=== PATIENT | male | born 1980 | race Caucasian/White ===

== ENCOUNTER 2017-03-25 14:27 | Emergency (ER) | payer SELFPAY ==
[2017-03-25 15:08] VITALS: BP 119/80
--- NOTE | 2017-03-25 15:18 | EDM.PDOC ---
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 States that he was using a skill saw and accidentally slipped across the wording into his palmar aspect of his left fingertips. There are deep lacerations to the volar aspect questionable whether or not there could be bony involvement. The lacerations are all above the flexor tendon insertion sites. He believes his tetanus toxoid is up-to-date about 6 years ago. Injury occurred about 45 minutes before coming to the ED. He is right-hand dominant. 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 (see below) Left Hand Pain Score (Numeric/FACES): 8 - Related Data Allergies Allergy/AdvReac Type Severity Reaction Status Date / Time No Known Allergies Allergy Verified 11/03/14 16:21 Home Meds: Home Meds Minocycline HCl 100 mg PO BID #20 capsule 03/25/17 [Rx] oxyCODONE HCl/Acetaminophen [Percocet 5-325 mg Tablet] 1 - 2 each PO Q4H PRN # 10 tablet 03/25/17 [Rx] Past Medical History - Past Health History Medical/Surgical History: Denies Medical/Surgical History - Past Surgical History GI Surgical History: Reports: Appendectomy Social & Family History - Tobacco Use Smoking Status *Q: Current Every Day Smoker Years of Tobacco use: 10 Packs/Tins Daily: 0.5 Used Tobacco, but Quit: No Second Hand Smoke Exposure: No - Caffeine Use Caffeine Use: Reports: Coffee, Soda - Alcohol Use Days Per Week of Alcohol Use: 0 - Recreational Drug Use Recreational Drug Use: No - Living Situation & Occupation Living situation: Reports: with Significant Other Occupation: Employed Review of Systems - Review of Systems Review Of Systems: See Below Constitutional: Reports: No Symptoms Eyes: Reports: No Symptoms Ears: Reports: No Symptoms Nose: Reports: No Symptoms Mouth/Throat: Reports: No Symptoms Respiratory: Reports: No Symptoms Cardiovascular: Reports: No Symptoms GI/Abdominal: Reports: No Symptoms Genitourinary: Reports: No Symptoms Musculoskeletal: Reports: No Symptoms Skin: Reports: No Symptoms Neurological: Reports: No Symptoms Psychiatric: Reports: No Symptoms ED EXAM, GENERAL - Physical Exam Exam: See Below Exam Limited By: No Limitations General Appearance: Alert, WD/WN, Mild Distress Extremities: Other (Patient has deep lacerations across the mid distal phalanx ease of the second third and fourth fingers of his left hand. There particular a deep on the second and fourth digits. Lacerations again are above the flexor tendon insertion sites. Question whether may be bony involvement.) Neurological: Alert ( X-rays will be done.), Oriented, CN II-XII Intact, Normal Cognition, Normal Gait Psychiatric: Normal Affect, Normal Mood Skin Exam: Warm, Dry, Intact, Normal Color, No Rash ED TRAUMA EXTREMITY PROCEDURES - Laceration/Wound Repair Left Finger Lac/Wound Length In cm: 4.5 (Lacerations to the volar surfaces of the second third and fourth fingers total length was 4.5 cm) Appearance: Subcutaneous, Clean Distal NVT: Neuro & Vascular Intact Anesthetic Type: Local Local Anesthesia - Lidocaine (Xylocaine): 1% Plain Local Anesthetic Volume: Other (8 mL in total.) Exploration/Debridement/Repair: Wound Explored Closed With: Sutures Suture Size: other (Utilized a combination of 3040 and 5-0 Ethilon sutures to bring the wounds together.) # of Sutures: 13 (Mils start second finger took seven 3-0 sutures and the fourth finger took four 4-0 sutures) Suture Type: Nylon, Interrupted, Simple Course - Vital Signs Last Recorded V/S: Last Vital Signs Temp 36.6 C 03/25/17 15:06 Pulse 74 03/25/17 15:06 Resp 20 03/25/17 15:06 BP 119/80 03/25/17 15:06 Pulse Ox 100 03/25/17 15:06 - Orders/Labs/Meds Meds: Medications Discontinued Medications Generic Name Dose Route Start Last Admin Trade Name Freq PRN Reason Stop Dose Admin Lidocaine HCl 10 ml 03/25/17 15:29 03/25/17 16:13 Xylocaine 1% INJECT 03/25/17 15:30 10 ml ONETIME ONE Administration - Radiology Interpretation Free Text/Narrative:: 36-year-old male seen through the ED with a work-related injury. Patient suffered deep lacerations to the volar aspects of his left second third and fourth fingertips. This happened when still sought crossed across the fingers. Has deep lacerations that will require laceration repair. Longest in length is about 1.5 cm. X-ray of the hand to be done to rule out bony injury. Tetanus toxoid is felt to be up-to-date at this time. - Re-Assessments/Exams Free Text/Narrative Re-Assessment/Exam: 03/25/17 15:32 x-rays of the fingers of the left hand do not reveal any bony involvement from Skil saw injuries. Therefore injuries are all soft tissue and will require laceration repair. He will require repair to the second third and fourth volar distal phalanx phalanges. 03/25/17 16:15: Lacerations to the distal volar aspects of the left second third and fourth fingers were sutured under local anesthetic. Total length of lacerations was 4.5 cm. Suit 13 sutures were used in total. Sutures should be removed in 10-12 days time. Departure - Departure Time of Disposition: 16:08 Disposition: Home, Self-Care 01 Condition: Fair Clinical Impression: Laceration of fingers without complication Qualifiers: Encounter type: initial encounter Qualified Code(s): S61.219A - Laceration without foreign body of unspecified finger without damage to nail, initial encounter - Discharge Information Prescriptions: Minocycline HCl 100 mg PO BID #20 capsule oxyCODONE HCl/Acetaminophen [Percocet 5-325 mg Tablet] 1 - 2 each PO Q4H PRN # 10 tablet PRN Reason: pain relief. Instructions: Laceration Care, Adult Referrals: PCP,None [Primary Care Provider] - Forms: ED Department Discharge Additional Instructions: Evaluation in the emergency room today in regards to work related injury. Fingertips of the left second third and fourth fingers came in contact with skill saw blade with resultant deep lacerations to the surfaces. X-ray of the hand does not reveal any bony injuries or hand lacerations above tendon insertion sites. Us toxoid is felt to be up-to-date. Treatment was therefore wound cleansed and then anesthetized with 1% lidocaine and suture repair. Treatment at home is to daily cleanse the wounds with soap and water. Showering is okay. Then apply topical anabolic such as bacitracin or Polysporin to the wounds once daily and cover with bandages to keep clean. Sutures will need to be removed in 10 days' time. Suggest primarily Motrin 600 mg every 6 hours needed for pain relief. She Percocet tablets that he may take one with a 600 mg Motrin if needed for pain relief for the next few days. Suggest use of minocycline 100 mg twice daily for the next 10-12 days to prevent any secondary wound infection since the wounds travel to down close to the bone. Return to medical care if any signs of infection occur such as redness swelling or obvious pus.
[2017-03-25] MEDS ORDERED: Lidocaine 1% 10 ML MDV INJECT ONE (15:29)
--- NOTE | 2017-03-25 16:05 | CR ---
Left hand: Four views of the left hand were obtained. Comparison: No previous study. Joint spaces within the left hand are preserved. Soft tissue swelling is identified. No opaque foreign body is seen within the soft tissues. No fracture or other bony abnormality is appreciated. Impression: 1. Mild soft tissue swelling. No bony abnormality is identified on left hand exam. Diagnostic code #2
== END 2017-03-25 16:50 | disposition home or self-care (01) ==
LOC: JD.ED 14:27
DX: S61.213A Laceration without foreign body of left middle finger without damage to nail, initial encounter (principal); S61.211A Laceration without foreign body of left index finger without damage to nail, initial encounter; S61.215A Laceration without foreign body of left ring finger without damage to nail, initial encounter; Z90.49 Acquired absence of other specified parts of digestive tract; F17.210 Nicotine dependence, cigarettes, uncomplicated; W31.89XA Contact with other specified machinery, initial encounter
CPT/HCPCS: 12002; 73130-26-LT; 73130-LT; 99283-25